=== PATIENT | male | born 1975 | race Caucasian/White ===

== ENCOUNTER 2018-11-06 20:19 | Emergency (ER) | payer OTHER ==
[~2018-11-06] VITALS: Ht 157.5 cm; Wt 64.0 kg
[2018-11-06 20:39] VITALS: Ht 157.5 cm; Wt 64.0 kg
[2018-11-06 21:29] LABS: BASOPHIL % 0.1 % (0-2); PLATELET COUNT 271 x10^3mcL (130-400); RED CELL DISTRIBUTION WIDTH 12.6 % (11.5-14.5)
[2018-11-06 21:42] LABS: CALCIUM 8.9 mg/dL (8.5-10.1); CARBON DIOXIDE 27.7 mmol/L (21-32); CHLORIDE SERUM 105 mmol/L (98-107); GFR1 > 60 mL/min; GLUCOSE SERUM 125 mg/dL (74-106); SODIUM SERUM 143 mmol/L (136-145)
[2018-11-06 21:47] LABS: ALBUMIN 4.5 g/dL (3.4-5.0); ALKALINE PHOSPHATASE 79 U/L (46-116); ALT/SGPT 45 U/L (16-63); AST/SGOT 20 U/L (15-37); BILIRUBIN TOTAL 1.1 mg/dL (0.20-1.00)
[2018-11-07 00:44] VITALS: BP 123/77
== END 2018-11-07 00:44 | disposition home or self-care (01) ==
LOC: ED 20:19
PROVIDERS: Emergency Medicine
DX: N23 Unspecified renal colic (principal); Z87.442 Personal history of urinary calculi
CPT/HCPCS: J1885; J7030